=== PATIENT | male | born 1965 | race Two or more races ===

== ENCOUNTER 2020-10-14 16:06 | Inpatient (IN) | payer OTHER ==
[~2020-10-14] VITALS: Ht 167.6 cm; Wt 131.6 kg
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
[2020-10-14] MEDS ORDERED: ALBUTEROL/IPRATROPIUM 2.5MG/0.5MG, 3 ML ONE (17:34)
[2020-10-14] MEDS: ALBUTEROL/IPRATROPIUM 2.5MG/0.5MG, 3 ML NPPB SCH (17:38)
[2020-10-14] MEDS ORDERED: SODIUM CHLORIDE FLUSH 10ML SYR IVF ONE (18:00)
[2020-10-14 18:27] LABS: MEAN CORPUSCULAR HEMOGLOBIN 24.8 pg (27.5-34.5); MEAN CORPUSCULAR HGB CONC 31.1 g/dL (33.2-36.2); PLATELET COUNT 269 x10^3/uL (130-400); RED CELL DISTRIBUTION WIDTH 18.5 % (9.4-14.8)
[2020-10-14 18:36] LABS: ALBUMIN 2.5 g/dL (3.4-5.0); CALCIUM 8.4 mg/dL (8.5-10.1); CHLORIDE 103 mmol/L (98-107)
[2020-10-14 18:42] LABS: ALANINE AMINOTRANSFERASE 24 U/L (12-78); ALKALINE PHOSPHATASE 83 U/L (45-117); BILIRUBIN,TOTAL 0.4 mg/dL (0.2-1.0); CREATININE 1.01 mg/dL (0.7-1.3); TOTAL PROTEIN 6.6 g/dL (6.4-8.2); TROPONIN I < 0.015 ng/mL (0.000-0.045)
[2020-10-14 18:59] LABS: ANION GAP 3 mmol/L (5-15)
[2020-10-14 19:00] LABS: BAND#(MANUAL) 0.22 x10^3/uL; BANDS%(MANUAL) 3 % (0-7); LYMPH#(MANUAL) 1.01 x10^3/uL (1-3.4); LYMPHS% (MANUAL) 14 % (22-44); METAMYELOCYTES# (MANUAL) 0.14 x10^3/uL (0-0); METAMYELOCYTES% (MANUAL) 2 % (0-1); MONOS% (MANUAL) 7 % (2-9); SEG#(MANUAL) 5.33 x10^3/uL (1.8-6.8); SEGS% (MANUAL) 74 % (42-75)
[2020-10-14 19:01] LABS: ANISOCYTOSIS 1+
[2020-10-14 19:02] LABS: POLYCHROMASIA 1+
[2020-10-14 19:03] LABS: <PLATELET ESTIMATE> ADEQUATE; <PLT MORPHOLOGY> NORMAL PLT MORPH
[2020-10-14] MEDS ORDERED: CEFTRIAXONE 1,000 MG in DEXTROSE 5% 50 ML IVPB ONE (19:30)
[2020-10-14] MEDS ORDERED: AZITHROMYCIN 500 MG in SODIUM CHLORIDE 0.9% 250 ML IVPB ONE (19:30)
--- NOTE | 2020-10-14 19:33 | NUR ---
PT LAYING IN BED, ALL NEEDS IN REACH, CALL LIGHT IN REACH, VSS
--- NOTE | 2020-10-14 19:36 | NUR ---
GENE GHOSH (DAUGHTERS) [phone]
[2020-10-14] MEDS ORDERED: DEXAMETHASONE 4 MG/ML, 1ML IVPush ONE (20:00)
[2020-10-14] MEDS ORDERED: SODIUM CHLORIDE FLUSH 10ML SYR IVF PRN (20:00)
[2020-10-14] MEDS ORDERED: ONDANSETRON ODT 4 MG PO PRN (20:30)
[2020-10-14] MEDS ORDERED: POLYETHYLENE GLYCOL 17 GM PACKET PO PRN (20:30)
[2020-10-14] MEDS ORDERED: GUAIFENESIN/DM 200-20MG, 10ML UDC PO PRN (20:30)
[2020-10-14] MEDS ORDERED: ACETAMINOPHEN 325 MG TABLET PO PRN (20:30)
[2020-10-14] MEDS ORDERED: BISACODYL 10 MG SUPP PR PRN (20:30)
[2020-10-14 23:13] VITALS: BP 109/69
[2020-10-14] MEDS: SODIUM CHLORIDE 0.9% 1,000 ML IV SCH (23:20)
[2020-10-14] MEDS: HEPARIN 5,000 UNITS/ML, 1ML SQ SCH (23:20)
[2020-10-15 00:49] VITALS: BP 121/79
[2020-10-15 04:51] LABS: MEAN CORPUSCULAR HEMOGLOBIN 25.1 pg (27.5-34.5); MEAN CORPUSCULAR HGB CONC 31.2 g/dL (33.2-36.2); MEAN PLATELET VOLUME 7.7 fL (7.4-10.4); PLATELET COUNT 247 x10^3/uL (130-400); RED BLOOD COUNT 5.48 x10^6/uL (4.38-5.82); RED CELL DISTRIBUTION WIDTH 18.9 % (9.4-14.8)
[2020-10-15 05:04] LABS: ANION GAP 1 mmol/L (5-15); CALCIUM 8.4 mg/dL (8.5-10.1); CHLORIDE 103 mmol/L (98-107)
[2020-10-15 05:05] LABS: CREATININE 0.88 mg/dL (0.7-1.3)
[2020-10-15 05:49] LABS: BAND#(MANUAL) 0.42 x10^3/uL; BANDS%(MANUAL) 5 % (0-7); LYMPH#(MANUAL) 0.25 x10^3/uL (1-3.4); LYMPHS% (MANUAL) 3 % (22-44); MONOS#(MANUAL) 0.25 x10^3/uL (0.3-2.7); MONOS% (MANUAL) 3 % (2-9); SEG#(MANUAL) 7.48 x10^3/uL (1.8-6.8); SEGS% (MANUAL) 89 % (42-75)
[2020-10-15 05:50] LABS: ANISOCYTOSIS 1+; MICROCYTOSIS 1+; POLYCHROMASIA 1+
[2020-10-15 05:51] LABS: <PLATELET ESTIMATE> ADEQUATE; <PLT MORPHOLOGY> NORMAL PLT MORPH
[2020-10-15] MEDS: INSULIN LISPRO 100 UNITS/ML, PEN SQ-INSULIN SCH ×3 (08:00→17:14)
[2020-10-15 08:15] VITALS: BP 124/75
[2020-10-15] MEDS ORDERED: SENNA/DOCUSATE TABLET PO SCH (09:00)
[2020-10-15] MEDS ORDERED: METF10007 PO (10:07)
[2020-10-15] MEDS: SODIUM CHLORIDE 0.9% 1,000 ML IV SCH (10:25)
[2020-10-15] MEDS: HEPARIN 5,000 UNITS/ML, 1ML SQ SCH ×2 (10:27→19:19)
[2020-10-15 12:34] VITALS: BP 125/81
[2020-10-15 19:26] VITALS: BP 115/76
[2020-10-15] MEDS ORDERED: CEFTRIAXONE 1,000 MG in DEXTROSE 5% 50 ML IVPB SCH (19:30)
[2020-10-15] MEDS ORDERED: AZITHROMYCIN 500 MG in SODIUM CHLORIDE 0.9% 250 ML IV SCH (20:00)
[2020-10-15] MEDS ORDERED: DEXAMETHASONE 4 MG/ML, 1ML IVPush SCH (20:00)
== END 2020-10-15 19:42 | disposition left against medical advice (07) | DRG 193 ==
LOC: ED 18:56 → EDIP 20:02 → 3N 21:05
PROVIDERS: ADMIT Internal Medicine; ATTEND Internal Medicine
DX: J15.9 Unspecified bacterial pneumonia (principal); J96.01 Acute respiratory failure with hypoxia; Z68.42 Body mass index [BMI] 45.0-49.9, adult; D50.9 Iron deficiency anemia, unspecified; E66.01 Morbid (severe) obesity due to excess calories; L40.9 Psoriasis, unspecified; Z20.822 Contact with and (suspected) exposure to COVID-19; Z87.891 Personal history of nicotine dependence; Z53.29 Procedure and treatment not carried out because of patient's decision for other reasons
CPT/HCPCS: 36415; 71045; 80048; 80053; 82728; 82962; 83036; 83540; 83550; 83605; 83615; 83880; 84145; 84484; 85025; 85384; 87040; 93005; 94640; 96374; G0378; J0456; J0696; J1100; J1644; U0005; J1815; J7030; J7050; U0003